=== PATIENT | female | born 1995 | race Caucasian/White ===

== ENCOUNTER → 2016-11-12 | Outpatient (CLI) | payer BC ==
--- NOTE | 2016-11-12 15:44 | US ---
Transabdominal and Transvaginal Pelvic Ultrasound History: 21-year-old with heavy irregular menses, bloating, low back pain, LMP of October 26, 2016. Comparison: None available. Findings: Transabdominal: The uterus and ovaries are grossly normal. The bladder is normal. Transvaginal: The uterus measures 6.3 x 4.3 x 2.9 cm. No fibroids are present. The endometrium is tyra ogeneous and measures 4 mm. The left ovary measures 3.3 x 1.7 x 4.0 cm. The right ovary measures 3.0 x 1.6 x 3.0 cm. No adnexal masses are identified. Normal arterial blood flow is documented to both o varies by Doppler ultrasound. There is trace free fluid. Impression: Normal pelvic ultrasound.
== END ==
LOC: BRMIMAGING 14:14
PROVIDERS: ATTEND Midwife
DX: N92.1 Excessive and frequent menstruation with irregular cycle (principal); M54.5 Low back pain; R14.0 Abdominal distension (gaseous)
CPT/HCPCS: 76856-PO